=== PATIENT | male | born 1965 | race Two or more races ===

== ENCOUNTER 2025-03-28 12:06 | Emergency (ER) | payer MEDICAID, OTHER ==
[~2025-03-28] VITALS: Ht 177.8 cm; Wt 100.7 kg
--- NOTE | 2025-03-28 15:16 | ED.PDOC ---
General HPI Comments 60M presents to the ER w/ prior MHx of High Lipids, DM and the c/c of flank pain. Pt reports on having had right sided flank pain for 2 years which was on/off associated / LOAIZA for 3 months that were on/off, frequency, and lower ABD pain which radiates to the back. In triage the pt had BS of 240/BP of 172/117. Denies any symptoms at this time. Patient denies any chest pain, dizziness, numbness, weakness, tingling, fever, chills, or recent fall. Chief Complaint: Flank Pain Time Seen by MD: 14:45 Reviewed notes: Nurses Notes, Medications, Allergies Allergies: Coded Allergies: Glipizide (Verified Allergy, Severe, 03/28/25) Glyburide (Verified Allergy, Severe, 03/28/25) Information Source: Patient Mode of Arrival: Ambulatory Severity: Moderate Timing: Months Duration: Since onset Prehospital treatment: None Onset: Spontaneous Symptoms: Frequency History of: None Location: (R) Flank Penile discharge: None Modifying factors: None associated signs and symptoms: Abdominal Pain, Flank Pain, Back Pain, Frequency Past Medical History PAST MEDICAL HISTORY: DM, High Lipids Surgical History: Denies all surgeries Family History Family History: Reviewed,noncontributory to illness, Unknown Social History Smoker: Non-Smoker Alcohol: Denies ETOH Use Drugs: Denies Drug Use Lives In: Home Constitutional: denies: chills, diaphoresis, fatigue, fever, malaise, sweats, weakness, others EENTM: denies: blurred vision, double vision, ear bleeding, ear discharge, ear drainage, ear pain, ear ringing, eye pain, eye redness, hearing loss, mouth pain, mouth swelling, nasal discharge, nose bleeding, nose congestion, nose pain, photophobia, tearing, throat pain, throat swelling, voice changes, others Respiratory: denies: cough, hemoptysis, orthopnea, SOB at rest, shortness of breath, SOB with excertion, stridor, wheezing, others Cardiovascular: denies: chest pain, dizzy spells, diaphoresis, Dyspnea on exertion, edema, irregular heart beat, left arm pain, lightheadedness, palpitations, PND, syncope, others Gastrointestinal: reports: abdominal pain; denies: abdomen distended, blood streaked bowels, constipated, diarrhea, dysphagia, difficulty swallowing, hematemesis, melena, nausea, poor appetite, poor fluid intake, rectal bleeding, rectal pain, vomiting, others Genitourinary: reports: flank pain, frequency; denies: burning, dysuria, hematuria, incontinence, penile discharge, penile sore, pain, testicle pain, testicle swelling, urgency, others Neurological: denies: dizziness, fainting, headache, left sided numbness, left sided weakness, numbness, paresthesia, pre-existing deficit, right sided numbness, right sided weakness, seizure, speech problems, tingling, tremors, weakness, others Musculoskeletal: reports: back pain; denies: gout, joint pain, joint swelling, muscle pain, muscle stiffness, neck pain, others Integumetry: denies: bruises, change in color, change in hair/nails, dryness, laceration, lesions, lumps, rash, wounds, others Allergic/Immunocompromised: denies: Difficulty Healing, Frequent Infections, Hives, Itching, others Hematologic/Lymphatic: denies: anemia, blood clots, easy bleeding, easy bruising, swollen glands, others Endocrine: denies: excessive hunger, excessive sweating, excessive thirst, excessive urination, flushing, intolerance to cold, intolerance to heat, unexplained weight gain, unexplained weight loss, others Psychiatric: denies: anxiety, bipolar disorder, depression, hopeless, panic disorder, schizophrenia, sleepless, suicidal, others All Other Systems: Reviewed and Negative Physical Exam General Appearance: Moderate Distress, Obese HEENT: Normal ENT Inspection, PERRL/EOMI, Pharynx Normal, TMs Normal Neck: Full Range of Motion, Non-Tender, Normal, Normal Inspection Respiratory: Chest Non-Tender, Lungs Clear, No Accessory Muscle Use, No Respiratory Distress, Normal Breath Sounds Cardiovascular: No Edema, No JVD, No Murmur, No Gallop, Normal Peripheral Pulses, Regular Rate/Rhythm Breast Exam: Deferred Gastrointestinal: Distended, No Organomegaly, No Pulsatile Mass, Normal Bowel Sounds, RUQ, Soft, Tenderness Genitalia: Deferred Pelvic: Deferred Rectal: Deferred Extremities: No calf tenderness, Normal capillary refill, Normal inspection, Normal range of motion, Non-tender, No pedal edema Musculoskeletal : Apperance: Normal Neurologic: Alert, 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 Was a procedure done?: No EKG EKG : Pulse Rate (adult): 79 [place]: Normal Cardiac Rhythm: NSR Hypertrophy: LVH Differential Diagnosis Kidney stone (Female): N/A Kidney stone (Male): Cholelithiasis, Urinary tract infection Penile/Scrotal: UTI Urinary Problem (Male): Plelonephritis, UTI Urinary Problem (Female): N/A X-Ray, Labs, Meds, VS Vital Signs Date Time Temp Pulse Resp B/P (MAP) Pulse Ox O2 Delivery O2 Flow Rate FiO2 03/28/25 15:33 79 03/28/25 13:38 172/117 03/28/25 13:38 98.1 86 16 172/117 (135) 95 98.1 03/28/25 12:32 235/133 03/28/25 12:19 79 03/28/25 12:09 97.6 64 15 99 97.6 Lab Test 03/28/25 15:00 Range/Units White Blood Count 8.3 4.4-10.8 10^3/uL Red Blood Count 5.72 4.5-5.90 10^6/uL Hemoglobin 15.9 13.5-17.5 g/dL Hematocrit 47.5 41.0-53.0 % Mean Corpuscular Volume 82.9 80.0-100.0 fL Mean Corpuscular Hemoglobin 27.8 L 28.0-32.0 pg Mean Corpuscular Hemoglobin Concent 33.6 32.0-36.0 g/dL Red Cell Distribution Width 13.7 11.8-14.3 % Platelet Count 296 140-450 10^3/uL Mean Platelet Volume 8.9 6.9-10.8 fL Neutrophils (%) (Auto) 68.7 37.0-80.0 % Lymphocytes (%) (Auto) 20.1 10.0-50.0 % Monocytes (%) (Auto) 7.2 0.0-12.0 % Eosinophils (%) (Auto) 3.4 0.0-7.0 % Basophils (%) (Auto) 0.6 0.0-2.0 % Neutrophils # (Auto) 5.7 1.6-8.6 10 ^3/uL Lymphocytes # (Auto) 1.7 0.4-5.4 10 ^3/uL Monocytes # (Auto) 0.6 0-1.3 10 ^3/uL Eosinophils # (Auto) 0.3 0-0.8 10 ^3/uL Basophils # (Auto) 0.1 0-0.2 10 ^3/uL Nucleated Red Blood Cells 0.0 % Sodium Level 135 L 136-145 mmol/L Potassium Level 3.9 3.5-5.1 mmol/L Chloride Level 97 L 98-107 mmol/L Carbon Dioxide Level 28 20-31 mmol/L Anion Gap 10 5-15 Blood Urea Nitrogen 12 9-23 mg/dL Creatinine 0.95 0.700-1.30 mg/dL Glomerular Filtration Rate Calc 91 >90 mL/min BUN/Creatinine Ratio 12.6 10.0-20.0 Serum Glucose 255 H 74-106 mg/dL Calcium Level 9.6 8.7-10.4 mg/dL Magnesium Level 1.7 1.6-2.6 mg/dL Total Bilirubin 0.6 0.2-1.0 mg/dL Aspartate Amino Transferase (AST) 201 H 13-40 U/L Alanine Aminotransferase (ALT) 179 H 7-40 U/L Alkaline Phosphatase 116 46-116 U/L Troponin I High Sensitivity 16 </=54 ng/L Total Protein 8.4 H 5.7-8.2 g/dL Albumin 4.8 3.2-4.8 g/dL Lipase 33 12-53 U/L Current Medications Medications (Trade) Dose Ordered Sig/Julita Route Start Time Stop Time Status Last Admin Clonidine HCl (Catapres Tablet) 0.2 mg ONCE ONCE PO 03/28/25 12:30 03/28/25 12:31 DC 03/28/25 12:32 X-Ray, Labs, Meds, VS Comment This patient came to the emergency department because of right-sided abdominal pain going to his back and also uncontrolled hypertension patient with a history of diabetes and hypertension CBC normal CMP blood sugar is 255 Magnesium 1.7 Liver enzymes elevated Troponin 16 Lipase 33 EKG shows normal sinus rhythm at 79 with left ventricular hypertrophy In his blood pressure at this time is 172/117 after getting clonidine and labetalol Chest x-ray is normal The CT abdomen and pelvis shows mostly hepatic steatosis and colitis Patient will be discharged home to follow up with his PCP Time of 1ST Reevaluation: 15:15 Reevaluation 1ST: Unchanged Patient Education/Counseling: Diagnosis, Treatment, Prognosis Family Education/Counseling: Diagnosis, Treatment, Prognosis, No Family Present SEPSIS Sepsis Screen Date sepsis recognized/suspect: Mar 28, 2025 Time Sepsis recognized/suspect: 1211 Recent Procedure: No On Antibiotic Therapy: No Respiratory Rate >20: No Heart Rate >90: No Temp<36 C (96.8 F) or >38.3 C: No SBP <90 or MAP <65 mmHG: No New Acute Mental Status Change: No Is the patient on CPAP, BIPAP,: No Physician Orders Electrocardigram (03/28/25 12:15) Troponin-I Hs (03/28/25 18:00) Troponin-I Hs (03/29/25 00:00) Urinalysis (03/28/25 14:48) Ct Ab Pel With Iv Con Only (03/28/25 14:48) Heplock Iv (03/28/25 14:48) Blood Pressure (03/28/25 14:48) Chest Two Views Routine (03/28/25 14:48) Vital Signs Date Time Temp Pulse Resp B/P (MAP) Pulse Ox O2 Delivery O2 Flow Rate FiO2 03/28/25 15:33 79 03/28/25 13:38 172/117 03/28/25 13:38 98.1 86 16 172/117 (135) 95 98.1 03/28/25 12:32 235/133 03/28/25 12:19 79 03/28/25 12:09 97.6 64 15 99 97.6 Laboratory Tests Test 03/28/25 15:00 White Blood Count 8.3 10^3/uL (4.4-10.8) Medications Medications Dose Ordered Sig/Julita Route Start Time Stop Time Status Last Admin Dose Admin Clonidine HCl 0.2 mg ONCE ONCE PO 03/28/25 12:30 03/28/25 12:31 DC 03/28/25 12:32 Departure 1 Departure Time of Disposition: 18:47 Impression: Primary Impression: Right sided abdominal pain Additional Impressions: Hepatic steatosis Elevated liver enzymes Severe uncontrolled hypertension Disposition: HOME / SELF CARE / HOMELESS Condition: Fair Additional Instructions: Your blood pressure is still high you need to continue to see your medical doctor Take your medication as directed You are having another medication you need to take at bedtime every day e-Prescriptions Hydrocodone-Acetaminophen (Hydrocodone Bitartrate/AC 5-325 mg) 1 Tab Tab 1 TAB PO BID for 10 Days, #20 TAB Prov: RUI HURTADO MD 03/28/25 Metoclopramide Hcl (Reglan) 10 Mg Tab 10 MG PO BID for 10 Days, #20 TAB Prov: RUI HURTADO MD 03/28/25 Labetalol Hcl (Labetalol Hcl) 100 Mg Tab 100 MG PO DAILY for 30 Days, #30 TAB Prov: RUI HURTADO MD 03/28/25 Discharged With: Self Critical Care Note Critical Care Time?: No Stability Stability form required: No Heart Score Heart Score: Heart Score Response (Comments) Value History Slightly Suspicious 0 EKG Normal 0 Age 45-64 1 Risk Factors 1 or 2 risk factors 1 Troponin Normal limit 0 Total 2 I personally scribed for RUI HURTADO MD ([email or web address]) on 03/28/25 at 15:16. Electronically submitted by Cortes Fang ([employer]). I personally scribed for RUI HURTADO MD ([email or web address]) on 03/28/25 at 15:17. Electronically submitted by Cortes Fang ([employer]). RUI HURTADO MD Mar 28, 2025 15:16
[2025-03-28 15:17] LABS: Hematocrit 47.5 % (41.0-53.0); Hemoglobin 15.9 g/dL (13.5-17.5); Mean Corpuscular Hemoglobin 27.8 pg (28.0-32.0); Mean Corpuscular Volume 82.9 fL (80.0-100.0); Nucleated Red Blood Cells % 0.0 %
[2025-03-28 15:35] LABS: Alkaline Phosphatase 116 U/L (46-116); Anion Gap 10 (5-15); BUN/Creatinine Ratio 12.6 (10.0-20.0); Blood Urea Nitrogen 12 mg/dL (9-23); Calcium 9.6 mg/dL (8.7-10.4); Carbon Dioxide 28 mmol/L (20-31); Lipase 33 U/L (12-53); Magnesium 1.7 mg/dL (1.6-2.6); Potassium 3.9 mmol/L (3.5-5.1)
[2025-03-28 15:36] LABS: Alanine Aminotransferase 179 U/L (7-40); Albumin 4.8 g/dL (3.2-4.8); Bilirubin, Total 0.6 mg/dL (0.2-1.0); Chloride 97 mmol/L (98-107); Glucose 255 mg/dL (74-106); Sodium 135 mmol/L (136-145); Total Protein 8.4 g/dL (5.7-8.2)
--- NOTE | 2025-03-28 17:52 | DVH ---
CHEST RADIOGRAPH Indication: Uncontrolled hypertension Technique: Frontal and lateral view of the chest was obtained Comparison: None FINDINGS: Lines and Tubes: None Lungs: Clear Pleura: No effusion. No pneumothorax. Cardiomediastinal contours: Unremarkable Bones: Unremarkable IMPRESSION: No evidence of acute disease.
[2025-03-28] MEDS: IOHEXOL 300 MG/ML 100ML BOTTLE IJ ONE (17:55)
--- NOTE | 2025-03-28 18:14 | DVH ---
Exam: CT CT AB PEL WITH IV CON ONLY History: Diffuse abdominal pain Comparison Study: None Exam Date: 03/28/2025 05:40 PM Radiation Dose Information: CT Dose: CTDI volume is 25.5 mGy. Dose-length product is 1415 mGy*cm TECHNIQUE: During the uneventful, intravenous administration of contrast material, multislice data acquisition was obtained through the abdomen and pelvis. The data set was subsequently reconstructed into axial images. Images were reviewed on a work station using a combination of axial and multiplanar using a variety of window levels and settings. Findings: Lower chest: Clear. Liver: Decreased in attenuation diffusely Biliary system: Unremarkable Spleen: Unremarkable Pancreas: Unremarkable. Adrenals: Unremarkable. Kidneys and ureters: Normal renal enhancement. No hydronephrosis Bowel: No obstruction. Apparent mild wall thickening of the descending colon. Normal appendix. Bladder: Unremarkable Reproductive organs: No abnormal mass. Lymph nodes: Unremarkable. Peritoneum: Unremarkable Vessels: Patent major intra-abdominal vasculature. Bones and soft tissue: No aggressive osseous lesion IMPRESSION: Apparent mild wall thickening of the descending colon. Correlate for colitis. Hepatic steatosis. All CT scans at this medical facility are performed using dose modulation techniques as appropriate to a performed exam including the following: Automated exposure control was utilized; adjustment of the MA and/or KV according to patient size; and use of iterative reconstruction technique.
[2025-03-28] MEDS ORDERED: LABE100T7 PO (18:52)
[2025-03-28] MEDS ORDERED: METO-281 PO (18:52)
[2025-03-28] MEDS ORDERED: HYDR-4902 PO (18:52)
--- NOTE | 2025-03-28 19:08 | ECG ---
[facility] Test Date: 2025-03-28 Test Time: 12:19:35 Pat Name: BRIANNE DE JESUS Department: ED Room: Gender: M Medical Office Secretary: YAKELIN : 1965 Requested By: RUI HURTADO Order Number: [id number] Reading MD: Heath Dominguez Measurements Intervals [place] Rate: 79 P: 66 [place]: 159 QRS: 48 QRSD: 87 T: -39 QT: 372 QTc: 427 Interpretive Statements Sinus rhythm Abnormal R-wave progression, early transition LVH with secondary repolarization abnormality Electronically Signed On 03-29-2025 11:43:25 PST by Heath Dominguez Please click the below link to view image of tracing.
[2025-03-28] MEDS: LABETALOL HCL 200 MG TAB PO ONE (19:20)
[2025-03-28] MEDS: METOCLOPRAMIDE HCL 5MG/ml INJ 2ml VIAL IV ONE (19:44)
[2025-03-28] MEDS: MORPHINE SULFATE 4 MG/ML SYR/VIAL IV ONE (19:45)
[2025-03-28 19:50] VITALS: PULSE 77; RESP 18; TEMP 98.1; O2SAT 97
[2025-03-28 20:09] VITALS: BP 146/88; PULSE 72; RESP 16
== END 2025-03-28 20:15 | disposition home or self-care (01) ==
LOC: ER 12:06
DX: R10.30 Lower abdominal pain, unspecified (principal); E11.9 Type 2 diabetes mellitus without complications; I10 Essential (primary) hypertension; K76.0 Fatty (change of) liver, not elsewhere classified
CPT/HCPCS: 36415; 71046; 74177; 80053; 83690; 83735; 84484; 85025; 93005; 96374; 96375; 99285; J2270; J2765; Q9967